=== PATIENT | female | born 1965 | race Caucasian/White ===

== ENCOUNTER 2020-10-04 13:16 | Emergency (ER) | payer BC ==
[~2020-10-04] VITALS: Ht 170.2 cm; Wt 84.1 kg
[2020-10-04 13:19] VITALS: BP 135/83; Ht 170.2 cm; Wt 84.1 kg
[2020-10-04] MEDS ORDERED: PEPCID AC20 MG PO (13:20)
[2020-10-04 13:48] LABS: BASOPHILS 0.7 % (0-2); EOSINOPHILS 1.4 % (0-7); HEMATOCRIT 49.7 % (36.0-48.0); HEMOGLOBIN 16.7 g/dL (12-16); LYMPHOCYTES 33.7 % (15-50); MCH 28.5 pg (26.0-34.0); MCHC 33.6 g/dL (31.0-37.0); MCV 84.9 fL (80.0-100.0); MONOCYTES 6.1 % (2-11); NEUTROPHILS 58.1 % (40-80); PLATELET COUNT 381 10x3/uL (130-400); RBC 5.85 10x6/uL (4.00-5.40); RDW 14.9 % (11.5-14.5); WBC 8.7 10x3/uL (4.8-10.8)
[2020-10-04 13:55] LABS: CALC OSMOLALITY 278 mosm/kg (275-300); CALCIUM 9.1 mg/dL (8.5-10.1); CARBON DIOXIDE 25.2 mmol/L (21.0-32.0); CHLORIDE - SERUM 103 mmol/L (98-107); GLUCOSE 102 mg/dL (74-106); POTASSIUM - SERUM 3.9 mmol/L (3.5-5.1); SODIUM 139 mmol/L (136-145); UREA NITROGEN 15 mg/dL (7-18); eGFR NON AFRICAN AMERICAN 61 mL/min (90-120)
[2020-10-04 14:04] LABS: ALBUMIN 4.3 g/dL (3.4-5.0); ALKALINE PHOSPHATASE 135 U/L (30-120); ALT (SGPT) 33 U/L (10-68); AMYLASE - SERUM 33 U/L (25-115); BILIRUBIN - TOTAL 0.69 mg/dL (0.2-1.3); LIPASE 36 U/L (73-393); PROTEIN - SERUM 8.3 g/dL (6.4-8.2); TROPONIN-I < 0.017 ng/mL (0.000-0.060)
[2020-10-04 14:30] LABS: BILIRUBIN NEGATIVE (NEGATIVE); KETONE NEGATIVE (NEGATIVE); NITRITE NEGATIVE (NEGATIVE); UROBILINOGEN NORMAL mg/dL (< 2)
[2020-10-04] MEDS ORDERED: CARAFATE1 G/10 ML PO (16:16)
== END 2020-10-04 16:41 | disposition home or self-care (01) ==
LOC: D.ER 13:16
PROVIDERS: Family Medicine
DX: R10.10 Upper abdominal pain, unspecified (principal); G89.29 Other chronic pain; K21.9 Gastro-esophageal reflux disease without esophagitis; R11.0 Nausea